=== PATIENT | male | born 1945 | race Caucasian/White ===

== ENCOUNTER 2019-10-06 11:28 | Emergency (ER) | payer BC ==
[~2019-10-06] VITALS: Ht 172.7 cm; Wt 77.1 kg
--- NOTE | 2019-10-06 11:46 | NUR ---
pt is in room #2a. dr bosch evaluated the pt.
--- NOTE | 2019-10-06 13:32 | NUR ---
PT WAS D/C'd TO HOME. D/C INSTRUCTIONS GIVEN TO THE PT.
[2019-10-06 13:33] VITALS: BP 142/84
== END 2019-10-06 13:33 | disposition home or self-care (01) ==
LOC: ER 11:28
DX: S00.31XA Abrasion of nose, initial encounter (principal); R04.0 Epistaxis; I25.10 Atherosclerotic heart disease of native coronary artery without angina pectoris; Z79.82 Long term (current) use of aspirin; Z79.899 Other long term (current) drug therapy; W22.8XXA Striking against or struck by other objects, initial encounter; Y93.89 Activity, other specified; Y92.89 Other specified places as the place of occurrence of the external cause; Y99.8 Other external cause status
CPT/HCPCS: 30901; A4663

== ENCOUNTER 2019-10-06 19:51 | Emergency (ER) | payer BC ==
[~2019-10-06] VITALS: Ht 175.3 cm; Wt 78.0 kg
--- NOTE | 2019-10-06 20:15 | NUR ---
Patient presents to ER for nose bleed re-check. Pt was here earlier and seen by Dr. Salas for nose bleed, noted rhino rocket in place on arrival. Dr. Ramos at bedside examining patient on arrival.
[2019-10-06] MEDS ORDERED: PHENYLEPHRINE 1% (EXTRA STR) NASAL SPRAY NS ONE (20:22)
[2019-10-06] MEDS ORDERED: LIDOCAINE 4% TOPICAL 50 ML BOTTLE ONE (20:22)
[2019-10-06] MEDS ORDERED: SILVER NITRATE APPLICATOR STICK EACH TP ONE (20:28)
--- NOTE | 2019-10-06 20:35 | NUR ---
Dr. Ramos at bedside removed rhino-rocket, cauterized outside of nose. No acute distress. Will monitor for further epistaxis
[2019-10-06] MEDS ORDERED: CEphaleXIN 500 MG CAPSULE PO ONE (20:45)
[2019-10-06] MEDS ORDERED: CEphaleXIN 500 MG CAPSULE ONE (21:00)
[2019-10-06] MEDS ORDERED: CLONIDINE HCL 0.1 MG TABLET ONE (21:30)
[2019-10-06] MEDS ORDERED: CLONIDINE HCL 0.1 MG TABLET PO ONE (21:30)
--- NOTE | 2019-10-06 21:33 | NUR ---
Per Dr. Raoms patient is stable for discharge. Per Dr. Ramos clonidine is to counter act the trevon-synephrine nasal spray that was given and caused blood pressure to be elevated. DC instructions and prescriptions given and reviewed with patient, verbalized understanding. Left ER in stable condition, denied chest pain or dizziness upon discharge. No epistaxis noted upon discharge. Patient denied need for help out.
[2019-10-06 21:34] VITALS: BP 175/102
== END 2019-10-06 21:35 | disposition home or self-care (01) ==
LOC: ER 19:53
DX: S02.2XXA Fracture of nasal bones, initial encounter for closed fracture (principal); R04.0 Epistaxis; E11.9 Type 2 diabetes mellitus without complications; E78.5 Hyperlipidemia, unspecified; Z79.82 Long term (current) use of aspirin; Z79.899 Other long term (current) drug therapy; W01.198A Fall on same level from slipping, tripping and stumbling with subsequent striking against other object, initial encounter; Y93.89 Activity, other specified; Y92.89 Other specified places as the place of occurrence of the external cause; Y99.8 Other external cause status
CPT/HCPCS: 30901; A4663